=== PATIENT | male | born 1955 | race African-American/Black ===

== ENCOUNTER 2017-03-31 13:55 | Inpatient (IN) | payer OTHER ==
[2017-03-31 15:52] VITALS: BMI 28.0
--- NOTE | 2017-03-31 17:14 | HP ---
Admission ROS [facility] Chief Complaint: I WANT TO GO TO REHAB Allergies/Adverse Reactions: Allergies Allergy/AdvReac Type Severity Reaction Status Date / Time shellfish derived Allergy Severe Vomiting Verified 03/31/17 17:11 No Known Drug Allergies Allergy Verified 03/31/17 17:11 NKDA Allergy Uncoded 03/31/17 17:11 History of Present Illness: 61 YEARS OLD MALE WITH LONG HISTORY OF ALCOHOL COCAINE NICOTINE DEPENDENCE HAS HISTORY OF HYPERTENSION, CURRENT CLONIDINE 0.1 MG TID PRN, NEGATIVE PPD AT [facility], ASTHMA HAS ANXIETY IS ADMITTED TO REHAB Exam Limitations: No Limitations - Ebola screening Have you traveled outside of the country in the last 21 days: No Have you had contact with anyone from an Ebola affected area: No Have you been sick,other than usual withdrawal symptoms: No Do you have a fever: No - Review of Systems Constitutional: No Symptoms Reported EENT: reports: Blurred Vision (WEARS EYE GLASSES) Respiratory: reports: No Symptoms reported Cardiac: reports: No Symptoms Reported GI: reports: No Symptoms Reported : reports: No Symptoms Reported Musculoskeletal: reports: Back Pain Integumentary: reports: No Symptoms Reported Neuro: reports: No Symptoms reported Endocrine: reports: No Symptoms Reported Hematology: reports: No Symptoms Reported Psychiatric: reports: Judgement Intact, Orientated x3, Anxious Other Systems: Reviewed and Negative Patient History - Patient Medical History Hx Anemia: No Hx Asthma: Yes Hx Chronic Obstructive Pulmonary Disease (COPD): No Hx Cancer: No Hx Cardiac Disorders: No Hx Congestive Heart Failure: No Hx Hypertension: Yes Hx Hypercholesterolemia: No Hx Pacemaker: No HX Cerebrovascular Accident: No Hx Seizures: No Hx Dementia: No Hx Diabetes: No Hx Gastrointestinal Disorders: No Hx Liver Disease: No Hx Genitourinary Disorders: No Hx Sexually Transmitted Disorders: No Hx Renal Disease (ESRD): No Hx Thyroid Disease: No Hx Human Immunodeficiency Virus (HIV): No (NEGATIVE HX) Hx Hepatitis C: No Hx Depression: No Hx Suicide Attempt: No Hx Bipolar Disorder: Yes Hx Schizophrenia: No (Paranoid Type) - Patient Surgical History Past Surgical History: Yes Hx Neurologic Surgery: No Hx Cataract Extraction: No Hx Cardiac Surgery: No Hx Lung Surgery: Yes (chest tube 1982 for lung collapse, left) Hx Breast Surgery: No Hx Breast Biopsy: No Hx Abdominal Surgery: No Hx Appendectomy: No Hx Cholecystectomy: No Hx Genitourinary Surgery: No Hx Orthopedic Surgery: Yes (BACK SX TWICE IN 2004) Hx Hysterectomy: No Anesthesia Reaction: No - PPD History Previous Implant?: Yes Documented Results: Negative w/proof Implanted On Prior R Admission?: Yes Date: 06/21/16 Results: 0 mm PPD to be Administered?: No - Smoking Cessation Smoking history: Current every day smoker Have you smoked in the past 12 months: Yes Aproximately how many cigarettes per day: 10 Cigars Per Day: 0 Hx Chewing Tobacco Use: No Initiated information on smoking cessation: Yes 'Breaking Loose' booklet given: 03/31/17 - Substance & Tx. History Hx Alcohol Use: Yes Hx Substance Use: Yes Substance Use Type: Alcohol, Cocaine Hx Substance Use Treatment: Yes (03/2017 [facility]) - Substances Abused Alcohol Route: Oral Frequency: Daily Amount used: 3 PINTS VOLKA Age of first use: 17 Date of Last Use: 03/25/17 Family Disease History - Family Disease History Family Disease History: Diabetes: Grandparent, Mother (), Sister, Heart Disease: Mother, Other: Mother Admission Physical Exam [facility] - Vital Signs Vital Signs: Vital Signs - 24 hr 03/31/17 15:50 Temperature 96.9 F L Pulse Rate 75 Respiratory 20 Rate Blood Pressure 165/106 - Physical General Appearance: Yes: No Apparent Distress, Nourished, Appropriately Dressed HEENTM: Yes: Hearing grossly Normal, Normal ENT Inspection, Normocephalic, Normal Voice Respiratory: Yes: Chest Non-Tender, Lungs Clear, Normal Breath Sounds, No Respiratory Distress, No Accessory Muscle Use Neck: Yes: Supple, Trachea in good position Breast: Yes: Breasts Symetrical Cardiology: Yes: Regular Rhythm, Regular Rate, S1, S2 Abdominal: Yes: Normal Bowel Sounds, Non Tender, Soft Genitourinary: Yes: Within Normal Limits Back: Yes: Normal Inspection Musculoskeletal: Yes: full range of Motion, Gait Steady, Back pain Extremities: Yes: Normal Inspection, Normal Range of Motion, Non-Tender Neurological: Yes: Fully Oriented, Alert, Motor Strength 5/5, Normal Response Integumentary: Yes: Warm Lymphatic: Yes: Within Normal Limits - Diagnostic (1) Asthma Current Visit: Yes Status: Chronic (2) Bipolar I disorder Current Visit: Yes Status: Suspected (3) Essential hypertension Current Visit: Yes Status: Chronic (4) Low back pain Current Visit: Yes Status: Chronic Qualifiers: Chronicity: chronic Back pain laterality: bilateral Sciatica presence: without sciatica Qualified Code(s): M54.5 - Low back pain; G89.29 - Other chronic pain (5) Nicotine dependence Current Visit: Yes Status: Acute Qualifiers: Nicotine product type: cigarettes Substance use status: in withdrawal Qualified Code(s): F17.213 - Nicotine dependence, cigarettes, with withdrawal Cleared for Admission [facility] - Detox or Rehab [facility] Level of Care: Observation Bed Detox Regimen/Protocol: Not Applicable Claeared for Rehab Admission: Yes [facility] Breath Alcohol Content Breath Alcohol Content: 0 Urine Drug Screen - Results Drug Screen Negative: No Urine Drug Screen Results: BZO-Benzodiazepines Inpatient Rehab Admission - Initial Determination Are CD services needed?: Yes Free of communicable disease: Yes Not in need of hospitalization: Yes - Rehab Admission Criteria Previous failed treatment: Yes Poor recovery environment: Yes Comorbidities: Yes Lacks judgement: No Patient is meeting Inpatient Rehab admission criteria:: Yes
[2017-03-31] MEDS ORDERED: MAGNESIUM CITRATE 300 ML BOTTLE PO PRN (17:22)
[2017-03-31] MEDS ORDERED: ACETAMINOPHEN 325 MG TABLET (FP) PO PRN (17:22)
[2017-03-31] MEDS ORDERED: MAG HYDROX/AL HYDROX/SIMETH 30 ML UNIT-DOSE CUP PO PRN (17:22)
[2017-03-31] MEDS ORDERED: MENTHOL/PHENOL 1 EACH UD MM PRN (17:22)
[2017-03-31] MEDS ORDERED: guaiFENesin/D-METHORPHAN HB 10 ML UNIT-DOSE CUPS PO PRN (17:22)
[2017-03-31] MEDS ORDERED: NICOTINE 14 MG/24 HOURS TOPICAL PATCH TD PRN (17:22)
[2017-03-31] MEDS ORDERED: MAGNESIUM HYDROX 2400MG/30ML ORAL SUSPENSION 30 ML CUP PO PRN (17:22)
[2017-03-31] MEDS ORDERED: NICOTINE POLACRILEX 2 MG GUM BC PRN (17:22)
[2017-03-31] MEDS ORDERED: diphenhydrAMINE HCL 50 MG CAPSULE PO PRN (17:22)
[2017-03-31] MEDS ORDERED: LOPERAMIDE HCL 2 MG CAPSULE PO PRN (17:22)
[2017-03-31] MEDS ORDERED: P-EPHED 60MG/TRIPROLIDI 2.5MG TABLET PO PRN (17:22)
[2017-03-31] MEDS ORDERED: IBUPROFEN 400 MG TABLET (FP) PO PRN (17:22)
[2017-03-31] MEDS ORDERED: ALBUTEROL SO4 18 GM HFA INHALER IH PRN (17:23)
[2017-03-31] MEDS: THIAMINE HCL 100 MG TABLET (FP) PO SCH (22:09)
[2017-03-31] MEDS: CYCLOBENZAPRINE HCL 10 MG TABLET (FP) PO SCH (22:09)
[2017-03-31] MEDS: hydrOXYzine PAMOATE 50 MG CAPSULE (FP) PO PRN (22:10)
[2017-03-31] MEDS: LIDOCAINE PATCH REMOVAL MC SCH (22:11)
[2017-03-31 23:35] LABS: URINE APPEARANCE SLCLOUDY; URINE BILIRUBIN NEGATIVE (NEGATIVE); URINE BLOOD NEGATIVE (NEGATIVE); URINE COLOR YELLOW; URINE GLUCOSE (UA) NEGATIVE (NEGATIVE); URINE KETONE NEGATIVE (NEGATIVE); URINE LEUK ESTERASE NEGATIVE (NEGATIVE); URINE NITRITE NEGATIVE (NEGATIVE); URINE PROTEIN NEGATIVE (NEGATIVE); URINE UROBILINOGEN NEGATIVE mg/dL (0.2-1.0)
[2017-04-01] MEDS: CYCLOBENZAPRINE HCL 10 MG TABLET (FP) PO SCH ×3 (06:11→21:35)
[2017-04-01] MEDS: PRENATAL VITAMINS W/ FOLIC ACID TABLET (FP) PO SCH (10:28)
[2017-04-01] MEDS: LIDOCAINE 5% TOPICAL PATCH TP SCH (10:28)
[2017-04-01 14:07] LABS: MCH 29.7 pg (25.7-33.7); MCHC 33.4 g/dl (32.0-35.9); MEAN PLT VOLUME 8.4 fl (7.5-11.1); PLATELET COUNT 227 K/MM3 (134-434); RDW 15.6 % (11.9-15.9); WHITE BLOOD COUNT 3.6 K/mm3 (4.0-10.0)
[2017-04-01 14:35] LABS: ALK PHOS 47 U/L (45-117); ANION GAP 13 (8-16); BILIRUBIN,TOTAL 0.4 mg/dL (0.2-1.0); CALCIUM 9.2 mg/dL (8.5-10.1); CO2 25 mmol/L (21-32); CREATININE 1.4 mg/dL (0.7-1.3); GLUCOSE,RANDOM 201 mg/dL (74-106); SGOT/AST 22 U/L (15-37); SGPT/ALT 29 U/L (12-78); TOT PROT 7.5 g/dl (6.4-8.2)
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
[2017-04-01] MEDS: THIAMINE HCL 100 MG TABLET (FP) PO SCH (21:35)
[2017-04-01] MEDS: LIDOCAINE PATCH REMOVAL MC SCH (21:35)
[2017-04-01] MEDS: hydrOXYzine PAMOATE 50 MG CAPSULE (FP) PO PRN (21:37)
--- NOTE | 2017-04-01 22:28 | EKG ---
Test Reason : Blood Pressure : / mmHG Vent. Rate : 072 BPM Atrial Rate : 072 BPM P-R Int : 182 ms QRS Dur : 084 ms QT Int : 404 ms P-R-T Axes : 063 047 017 degrees QTc Int : 442 ms NORMAL SINUS RHYTHM NONSPECIFIC ST AND T WAVE ABNORMALITY ABNORMAL ECG NO PREVIOUS ECGS AVAILABLE NO CLINICAL INFORMATION IS AVAILABLE FOLLOWM UP TRACING IF INDICATED Confirmed by EDIL MASTERSON MD ([id number]) on 04/01/2017 10:28:18 PM Referred By: Celina Jiménez Confirmed By:EDIL MASTERSON MD
[2017-04-02] MEDS: CYCLOBENZAPRINE HCL 10 MG TABLET (FP) PO SCH ×3 (06:09→21:47)
[2017-04-02] MEDS: PRENATAL VITAMINS W/ FOLIC ACID TABLET (FP) PO SCH (10:28)
[2017-04-02] MEDS: LIDOCAINE 5% TOPICAL PATCH TP SCH (10:29)
--- NOTE | 2017-04-02 10:55 | PN ---
[facility] Progress Note Note: patient was seen this am , states he is anxious and unable to sleep, ready to take medications, discussed indications and properties of Lexapro 10 mg po am and Remeron 30 mg po hs, patient agreed to start, will continue to monitor progress
[2017-04-02] MEDS: ESCITALOPRAM OXALATE 10 MG TABLET (FP) PO SCH (11:01)
[2017-04-02] MEDS: THIAMINE HCL 100 MG TABLET (FP) PO SCH (21:47)
[2017-04-02] MEDS: MIRTAZAPINE 30 MG TABLET (FP) PO SCH (21:47)
[2017-04-02] MEDS: LIDOCAINE PATCH REMOVAL MC SCH (21:47)
[2017-04-02] MEDS: hydrOXYzine PAMOATE 50 MG CAPSULE (FP) PO PRN (21:48)
[2017-04-03] MEDS: CYCLOBENZAPRINE HCL 10 MG TABLET (FP) PO SCH ×3 (06:21→21:46)
[2017-04-03] MEDS: ESCITALOPRAM OXALATE 10 MG TABLET (FP) PO SCH (10:41)
[2017-04-03] MEDS: PRENATAL VITAMINS W/ FOLIC ACID TABLET (FP) PO SCH (10:41)
[2017-04-03] MEDS: LIDOCAINE 5% TOPICAL PATCH TP SCH (10:42)
[2017-04-03] MEDS: THIAMINE HCL 100 MG TABLET (FP) PO SCH (21:46)
[2017-04-03] MEDS: MIRTAZAPINE 30 MG TABLET (FP) PO SCH (21:46)
[2017-04-03] MEDS: LIDOCAINE PATCH REMOVAL MC SCH (21:47)
[2017-04-03] MEDS: hydrOXYzine PAMOATE 50 MG CAPSULE (FP) PO PRN (21:48)
[2017-04-04] MEDS: CYCLOBENZAPRINE HCL 10 MG TABLET (FP) PO SCH ×3 (06:33→21:41)
[2017-04-04] MEDS: PRENATAL VITAMINS W/ FOLIC ACID TABLET (FP) PO SCH (10:31)
[2017-04-04] MEDS: LIDOCAINE 5% TOPICAL PATCH TP SCH (10:31)
[2017-04-04] MEDS: ESCITALOPRAM OXALATE 10 MG TABLET (FP) PO SCH (10:31)
[2017-04-04] MEDS: THIAMINE HCL 100 MG TABLET (FP) PO SCH (21:42)
[2017-04-04] MEDS: MIRTAZAPINE 30 MG TABLET (FP) PO SCH (21:42)
[2017-04-04] MEDS: hydrOXYzine PAMOATE 50 MG CAPSULE (FP) PO PRN (21:43)
[2017-04-04] MEDS: LIDOCAINE PATCH REMOVAL MC SCH (21:43)
[2017-04-05] MEDS: CYCLOBENZAPRINE HCL 10 MG TABLET (FP) PO SCH ×3 (06:13→21:38)
[2017-04-05] MEDS: ESCITALOPRAM OXALATE 10 MG TABLET (FP) PO SCH (10:45)
[2017-04-05] MEDS: PRENATAL VITAMINS W/ FOLIC ACID TABLET (FP) PO SCH (10:45)
[2017-04-05] MEDS: LIDOCAINE 5% TOPICAL PATCH TP SCH (10:45)
[2017-04-05] MEDS: MIRTAZAPINE 30 MG TABLET (FP) PO SCH (21:38)
[2017-04-05] MEDS: hydrOXYzine PAMOATE 50 MG CAPSULE (FP) PO PRN (21:38)
[2017-04-05] MEDS: LIDOCAINE PATCH REMOVAL MC SCH (21:39)
[2017-04-05] MEDS: THIAMINE HCL 100 MG TABLET (FP) PO SCH (21:39)
[2017-04-06] MEDS: CYCLOBENZAPRINE HCL 10 MG TABLET (FP) PO SCH ×3 (06:00→21:40)
[2017-04-06] MEDS: PRENATAL VITAMINS W/ FOLIC ACID TABLET (FP) PO SCH (10:14)
[2017-04-06] MEDS: LIDOCAINE 5% TOPICAL PATCH TP SCH (10:14)
[2017-04-06] MEDS: ESCITALOPRAM OXALATE 10 MG TABLET (FP) PO SCH (10:14)
[2017-04-06] MEDS: MIRTAZAPINE 30 MG TABLET (FP) PO SCH (21:40)
[2017-04-06] MEDS: THIAMINE HCL 100 MG TABLET (FP) PO SCH (21:40)
[2017-04-06] MEDS: hydrOXYzine PAMOATE 50 MG CAPSULE (FP) PO PRN (21:40)
[2017-04-06] MEDS: LIDOCAINE PATCH REMOVAL MC SCH (21:41)
[2017-04-07] MEDS: CYCLOBENZAPRINE HCL 10 MG TABLET (FP) PO SCH ×2 (06:00→14:15)
[2017-04-07 06:59] VITALS: TEMP 98.2
[2017-04-07] MEDS: ESCITALOPRAM OXALATE 10 MG TABLET (FP) PO SCH (10:42)
[2017-04-07] MEDS: LIDOCAINE 5% TOPICAL PATCH TP SCH (10:42)
[2017-04-07] MEDS: PRENATAL VITAMINS W/ FOLIC ACID TABLET (FP) PO SCH (10:42)
--- NOTE | 2017-04-07 14:29 | PN ---
Psychiatric Progress Note Vital Signs: Vital Signs Period Temp Pulse Resp BP Sys/Ghosh Pulse Ox Last 24 Hr 98.2 F 76 16-18 152/86 Date of Session: 04/07/17 Chief Complaint:: discharge visit HPI: The patient has addressed alcohol, cocaine , nicotine dependence comorbid Bipolar I disorder. ROS: HTN, Low back pain/herniated discs, sciatica, Asthma, GERD medically managed. Current Medications: Active Medications Generic Name Dose Route Start Last Admin Trade Name Freq PRN Reason Stop Dose Admin Acetaminophen 650 mg 03/31/17 17:22 Tylenol - PO Q4H PRN PAIN Al Hydroxide/Mg Hydroxide 30 ml 03/31/17 17:22 Mylanta Oral Suspension - PO Q6H PRN DYSPEPSIA Albuterol Sulfate 2 puff 03/31/17 17:23 Ventolin Hfa Inhaler - IH Q4H PRN SHORT OF BREATH/WHEEZING Cyclobenzaprine HCl 10 mg 03/31/17 22:00 04/07/17 14:15 Flexeril - PO 10 mg TID KWAME Administration Diphenhydramine HCl 50 mg 03/31/17 17:22 Benadryl - PO HSMR1 PRN INSOMNIA Escitalopram Oxalate 10 mg 04/02/17 10:45 04/07/17 10:42 Lexapro - PO 10 mg DAILY KWAME Administration Eucalyptus/Menthol/Phenol/Sorbitol 1 each 03/31/17 17:22 Cepastat Lozenge - MM Q4H PRN SORE THROAT Guaifenesin 10 ml 03/31/17 17:22 Robitussin Dm - PO Q6H PRN COUGH Hydroxyzine Pamoate 50 mg 03/31/17 17:22 04/06/17 21:40 Vistaril - PO 50 mg Q4H PRN Administration AGITATION Ibuprofen 400 mg 03/31/17 17:22 04/02/17 10:28 Motrin - PO 400 mg Q6H PRN Administration SEVERE PAIN Lidocaine 1 patch 04/01/17 10:00 04/07/17 10:42 Lidoderm Patch - TP Not Given DAILY KWAME Loperamide HCl 4 mg 03/31/17 17:22 Imodium - PO Q6H PRN DIARRHEA Magnesium Citrate 300 ml 03/31/17 17:22 Citroma - PO Q48H PRN CONSTIPATION Magnesium Hydroxide 30 ml 03/31/17 17:22 Milk Of Magnesia - PO DAILY PRN CONSTIPATION Mirtazapine 30 mg 04/02/17 22:00 04/06/17 21:40 Remeron - PO 30 mg HS KWAME Administration Miscellaneous 1 each 03/31/17 22:00 04/06/17 21:41 Lidoderm Patch Removal MC 1 each DAILY@2200 KWAME Administration Nicotine 14 mg 03/31/17 17:22 Nicoderm Patch - TD DAILY PRN WITHDRAWAL(CONT SUBST) Nicotine Polacrilex 2 mg 03/31/17 17:22 Nicorette Gum - BC Q2H PRN NICOTINE REPLACEMENT RX Multivit/Folic Acid/Iron 1 tab 04/01/17 10:00 04/07/17 10:42 Vitamins (Sjr) - PO 1 tab DAILY KWAME Administration Pseudoephedrine/Triprolidine 1 combo 03/31/17 17:22 Actifed - PO TID PRN NASAL CONGESTION Thiamine HCl 100 mg 03/31/17 22:00 04/06/17 21:40 Vitamin B1 - PO 100 mg HS KWAME Administration Current Side Effect: No Lab tests ordered: No Lab tests reviewed: Yes Provider note:: PAtient requested to be discharge today, he completed 7 days treatment and met short term goals, will continue address his isues at [facility] out reach services, he understands the negative consequenses of his addiction and motivated to continue maitain abstinence. Medications Lexapro and Remeron well tolarated, scripts provided, patient is stable for discharge today. Total face to face time:: 15 Mental Status Exam - Mental Status Exam Alert and Oriented to: Time, Place, Person Cognitive Function: Good Patient Appearance: Well Groomed Mood: Hopeful Affect: Appropriate, Mood Congruent Patient Behavior: Appropriate, Cooperative Speech Pattern: Clear, Appropriate Voice Loudness: Normal Thought Process: Goal Oriented Thought Disorder: Not Present Hallucinations: Denies Suicidal Ideation: Denies Homicidal Ideation: Denies Insight/Judgement: Fair Sleep: Fair Appetite: Fair Muscle strength/Tone: Normal Gait/Station: Normal Psychiatric Treatment Plan - Problem List (1) Nicotine dependence Current Visit: Yes Qualifiers: Nicotine product type: cigarettes Substance use status: in withdrawal Qualified Code(s): F17.213 - Nicotine dependence, cigarettes, with withdrawal (2) Bipolar I disorder Current Visit: Yes (3) Alcohol dependence Current Visit: No (4) Cocaine dependence Current Visit: No
[2017-04-07] MEDS ORDERED: amLODIPine BESYLATE 10 MG TABLET (FP) PO SCH (14:45)
[2017-04-07 15:51] VITALS: BP 148/98; PULSE 74
== END 2017-04-07 13:20 | disposition home or self-care (01) | DRG 772 ==
LOC: YASAS 13:55 → Y5N 20:19
PROVIDERS: ADMIT Psychiatry & Neurology Psychiatry; ATTEND Psychiatry & Neurology Psychiatry
PROC: HZ42ZZZ Group Counseling for Substance Abuse Treatment, Cognitive-Behavioral (ICD-10-PCS; principal; 2017-03-31)
DX: F10.20 Alcohol dependence, uncomplicated (principal); F14.20 Cocaine dependence, uncomplicated; F17.210 Nicotine dependence, cigarettes, uncomplicated; F31.89 Other bipolar disorder; I10 Essential (primary) hypertension; M54.40 Lumbago with sciatica, unspecified side; G89.29 Other chronic pain; J45.909 Unspecified asthma, uncomplicated; K21.9 Gastro-esophageal reflux disease without esophagitis; Z59.0 Homelessness
CPT/HCPCS: 36415; 80053; 81003; 85027; 86593; 86780; 93005; 93010

== ENCOUNTER 2021-05-16 14:09 | Inpatient (IN) | payer OTHER ==
[2021-05-16 16:59] VITALS: BMI 29.3
[2021-05-16] MEDS ORDERED: NICOTINE 10 MG CARTRIDGE (INHALER) IH PRN (17:12)
[2021-05-16] MEDS ORDERED: P-EPHED 60MG/TRIPROLIDI 2.5MG TABLET PO PRN (17:12)
[2021-05-16] MEDS ORDERED: ACETAMINOPHEN 325 MG TABLET (FP) PO PRN (17:12)
[2021-05-16] MEDS ORDERED: MAG HYDROX/AL HYDROX/SIMETH 30 ML UNIT-DOSE CUP PO PRN (17:12)
[2021-05-16] MEDS ORDERED: MAGNESIUM CITRATE 300 ML BOTTLE PO PRN (17:12)
[2021-05-16] MEDS ORDERED: LOPERAMIDE HCL 2 MG CAPSULE PO PRN (17:12)
[2021-05-16] MEDS ORDERED: MAGNESIUM HYDROX 2400MG/30ML ORAL SUSPENSION 30 ML CUP PO PRN (17:12)
[2021-05-16] MEDS ORDERED: guaiFENesin 200 MG/10 ML 10 ML UNIT-DOSE CUPS PO PRN (17:12)
[2021-05-16] MEDS: THIAMINE HCL 100 MG TABLET (FP) PO SCH (21:32)
[2021-05-16] MEDS: MELATONIN 5 MG TABLETS PO SCH (21:32)
[2021-05-16] MEDS: hydrOXYzine PAMOATE 25 MG CAPSULE (FP) PO PRN (21:32)
[2021-05-16 22:00] LABS: PH,URINE 5.5 (5.0-8.0); URINE APPEARANCE CLEAR; URINE BILIRUBIN NEGATIVE (NEGATIVE); URINE COLOR YELLOW; URINE GLUCOSE (UA) NEGATIVE (NEGATIVE); URINE KETONE TRACE (NEGATIVE); URINE LEUK ESTERASE NEGATIVE (NEGATIVE); URINE NITRITE NEGATIVE (NEGATIVE); URINE PROTEIN NEGATIVE (NEGATIVE); URINE UROBILINOGEN 0.2 mg/dL (0.2-1.0)
[2021-05-17] MEDS: hydrOXYzine PAMOATE 25 MG CAPSULE (FP) PO PRN ×2 (09:59→21:02)
[2021-05-17] MEDS: NICOTINE 7 MG/24 HOURS TOPICAL PATCH TD SCH (09:59)
[2021-05-17] MEDS: PRENATAL VITAMINS W/ FOLIC ACID TABLET (FP) PO SCH (09:59)
[2021-05-17 10:37] LABS: HEMOGLOBIN 15.3 GM/dL (11.7-16.9); MCH 30.5 pg (25.7-33.7); MCHC 34.8 g/dl (32.0-35.9); MEAN CELL VOLUME 87.6 fl (80-96); PLATELET COUNT 239 10^3/uL (134-434); RBC 5.02 M/mm3 (4.00-5.60); WHITE BLOOD COUNT 3.6 K/mm3 (4.0-10.0)
[2021-05-17 10:43] LABS: ALBUMIN 3.8 g/dl (3.4-5.0); BLOOD UREA NITROGEN 13.5 mg/dL (7-18); CALCIUM 9.1 mg/dL (8.5-10.1)
[2021-05-17 10:47] LABS: BILIRUBIN,TOTAL 0.5 mg/dL (0.2-1); CREATININE 1.2 mg/dL (0.55-1.3); TOT PROT 7.6 g/dl (6.4-8.2)
[2021-05-17] MEDS ORDERED: TAMSULOSIN HCL 0.4 MG CAP PO ONE ×2 (10:59→16:00)
[2021-05-17 12:45] LABS: SYPHILIS W/ RPR CONF REACTIVE (NONREACTIVE)
[2021-05-17] MEDS: IBUPROFEN 400 MG TABLET (FP) PO PRN (21:02)
[2021-05-17] MEDS: THIAMINE HCL 100 MG TABLET (FP) PO SCH (21:02)
[2021-05-17] MEDS: MELATONIN 5 MG TABLETS PO SCH (21:02)
[2021-05-18] MEDS ORDERED: TAMSULOSIN HCL 0.4 MG CAP PO SCH (08:30)
[2021-05-18] MEDS: TAMSULOSIN HCL 0.4 MG CAP PO SCH (10:09)
[2021-05-18] MEDS: hydrOXYzine PAMOATE 25 MG CAPSULE (FP) PO PRN ×2 (10:09→21:42)
[2021-05-18] MEDS: PRENATAL VITAMINS W/ FOLIC ACID TABLET (FP) PO SCH (10:09)
[2021-05-18] MEDS: NICOTINE 7 MG/24 HOURS TOPICAL PATCH TD SCH (10:10)
[2021-05-18] MEDS: THIAMINE HCL 100 MG TABLET (FP) PO SCH (21:42)
[2021-05-18] MEDS: MELATONIN 5 MG TABLETS PO SCH (21:42)
[2021-05-19] MEDS: PRENATAL VITAMINS W/ FOLIC ACID TABLET (FP) PO SCH (09:56)
[2021-05-19] MEDS: NICOTINE 7 MG/24 HOURS TOPICAL PATCH TD SCH (09:56)
[2021-05-19] MEDS: hydrOXYzine PAMOATE 25 MG CAPSULE (FP) PO PRN ×2 (09:56→21:19)
[2021-05-19] MEDS: TAMSULOSIN HCL 0.4 MG CAP PO SCH (09:56)
[2021-05-19] MEDS: THIAMINE HCL 100 MG TABLET (FP) PO SCH (21:18)
[2021-05-19] MEDS: MELATONIN 5 MG TABLETS PO SCH (21:19)
[2021-05-20] MEDS: TAMSULOSIN HCL 0.4 MG CAP PO SCH (10:02)
[2021-05-20] MEDS: hydrOXYzine PAMOATE 25 MG CAPSULE (FP) PO PRN ×2 (10:02→21:33)
[2021-05-20] MEDS: IBUPROFEN 400 MG TABLET (FP) PO PRN (10:02)
[2021-05-20] MEDS: PRENATAL VITAMINS W/ FOLIC ACID TABLET (FP) PO SCH (10:02)
[2021-05-20] MEDS: NICOTINE 7 MG/24 HOURS TOPICAL PATCH TD SCH (10:03)
[2021-05-20] MEDS: MELATONIN 5 MG TABLETS PO SCH (21:33)
[2021-05-20] MEDS: THIAMINE HCL 100 MG TABLET (FP) PO SCH (21:33)
[2021-05-21 08:27] VITALS: BP 163/95; PULSE 63; TEMP 97.7
[2021-05-21] MEDS: TAMSULOSIN HCL 0.4 MG CAP PO SCH (10:03)
[2021-05-21] MEDS: hydrOXYzine PAMOATE 25 MG CAPSULE (FP) PO PRN (10:03)
[2021-05-21] MEDS: NICOTINE 7 MG/24 HOURS TOPICAL PATCH TD SCH (10:03)
[2021-05-21] MEDS: PRENATAL VITAMINS W/ FOLIC ACID TABLET (FP) PO SCH (10:03)
== END 2021-05-21 17:25 | disposition left against medical advice (07) | DRG 770 ==
LOC: YASAS 14:09 → Y3W 18:46
PROVIDERS: ADMIT Allergy & Immunology; ATTEND Allergy & Immunology
PROC: HZ42ZZZ Group Counseling for Substance Abuse Treatment, Cognitive-Behavioral (ICD-10-PCS; principal; 2021-05-16)
DX: F10.20 Alcohol dependence, uncomplicated (principal); F14.20 Cocaine dependence, uncomplicated; F17.210 Nicotine dependence, cigarettes, uncomplicated; N40.0 Benign prostatic hyperplasia without lower urinary tract symptoms; Z91.013 Allergy to seafood
CPT/HCPCS: 36415; 80053; 81003; 85027; 86593; 86780; 86803; 87811; C9803; U0003; U0005

== ENCOUNTER 2021-10-12 12:56 | Inpatient (IN) | payer OTHER ==
[2021-10-12] MEDS ORDERED: ACETAMINOPHEN 325 MG TABLET (FP) PO PRN ×2 (13:53)
[2021-10-12] MEDS ORDERED: chlordiazePOXIDE HCL 25 MG CAPSULE PO PRN (13:53)
[2021-10-12] MEDS ORDERED: LOPERAMIDE HCL 2 MG CAPSULE PO PRN (13:53)
[2021-10-12] MEDS ORDERED: NICOTINE 10 MG CARTRIDGE (INHALER) IH PRN (13:53)
[2021-10-12] MEDS ORDERED: BISMUTH SUBSALICYLATE 262 MG/15 ML BTL PO PRN (13:53)
[2021-10-12] MEDS ORDERED: MENTHOL/PHENOL 1 EACH UD MM PRN (13:53)
[2021-10-12] MEDS ORDERED: ONDANSETRON *ODT* 4 MG TABLET SL PRN (13:53)
[2021-10-12] MEDS ORDERED: MAGNESIUM CITRATE 300 ML BOTTLE PO PRN (13:53)
[2021-10-12] MEDS ORDERED: DICYCLOMINE HCL 10 MG CAPSULE PO PRN (13:53)
[2021-10-12] MEDS ORDERED: MAG HYDROX/AL HYDROX/SIMETH 30 ML UNIT-DOSE CUP PO PRN (13:53)
[2021-10-12] MEDS ORDERED: MAGNESIUM HYDROX 2400MG/30ML ORAL SUSPENSION 30 ML CUP PO PRN (13:53)
[2021-10-12] MEDS ORDERED: hydrOXYzine PAMOATE 25 MG CAPSULE (FP) PO PRN (14:00)
[2021-10-12] MEDS ORDERED: NICOTINE 14 MG/24 HOURS TOPICAL PATCH TD SCH (14:00)
[2021-10-12 15:51] VITALS: BMI 28.3
[2021-10-12] MEDS: THIAMINE HCL 100 MG TABLET (FP) PO SCH (22:08)
[2021-10-12] MEDS: MELATONIN 5 MG TABLETS PO SCH (22:08)
[2021-10-12] MEDS: chlordiazePOXIDE HCL 25 MG CAPSULE PO SCH ×2 (22:08→22:50)
[2021-10-12] MEDS: PRENATAL VITAMINS W/ FOLIC ACID TABLET (FP) PO SCH (22:09)
[2021-10-13] MEDS: chlordiazePOXIDE HCL 25 MG CAPSULE PO SCH ×5 (00:07→22:23)
[2021-10-13] MEDS: hydrOXYzine PAMOATE 25 MG CAPSULE (FP) PO PRN ×2 (05:57→10:30)
[2021-10-13] MEDS: TAMSULOSIN HCL 0.4 MG CAP PO SCH (10:30)
[2021-10-13] MEDS: PRENATAL VITAMINS W/ FOLIC ACID TABLET (FP) PO SCH (10:31)
[2021-10-13] MEDS: IBUPROFEN 400 MG TABLET (FP) PO PRN (10:32)
[2021-10-13] MEDS: TOLNAFTATE 1% CREAM 15 GM TUBE TP SCH ×2 (10:33→22:23)
[2021-10-13] MEDS: MELATONIN 5 MG TABLETS PO SCH (22:23)
[2021-10-13] MEDS: THIAMINE HCL 100 MG TABLET (FP) PO SCH (22:23)
[2021-10-14] MEDS: chlordiazePOXIDE HCL 25 MG CAPSULE PO SCH ×4 (05:59→22:44)
[2021-10-14] MEDS: PRENATAL VITAMINS W/ FOLIC ACID TABLET (FP) PO SCH (10:25)
[2021-10-14] MEDS: METHOCARBAMOL 500 MG TABLET PO PRN ×2 (10:26→22:43)
[2021-10-14] MEDS: hydrOXYzine PAMOATE 25 MG CAPSULE (FP) PO PRN (10:26)
[2021-10-14] MEDS: TOLNAFTATE 1% CREAM 15 GM TUBE TP SCH ×2 (10:26→22:45)
[2021-10-14] MEDS: TAMSULOSIN HCL 0.4 MG CAP PO SCH (10:26)
[2021-10-14] MEDS: IBUPROFEN 400 MG TABLET (FP) PO PRN ×2 (10:28→22:42)
[2021-10-14] MEDS: MELATONIN 5 MG TABLETS PO SCH (22:43)
[2021-10-14] MEDS: THIAMINE HCL 100 MG TABLET (FP) PO SCH (22:44)
[2021-10-15] MEDS ORDERED: chlordiazePOXIDE HCL 10 MG CAPSULE PO PRN
[2021-10-15 00:06] LABS: SARS-CoV-2 NAA Not Detected (Not Detected)
[2021-10-15] MEDS: chlordiazePOXIDE HCL 10 MG CAPSULE PO SCH ×4 (05:52→22:05)
[2021-10-15] MEDS: TOLNAFTATE 1% CREAM 15 GM TUBE TP SCH ×2 (10:09→22:07)
[2021-10-15] MEDS: PRENATAL VITAMINS W/ FOLIC ACID TABLET (FP) PO SCH (10:09)
[2021-10-15] MEDS: TAMSULOSIN HCL 0.4 MG CAP PO SCH (10:09)
[2021-10-15] MEDS: METHOCARBAMOL 500 MG TABLET PO PRN (10:12)
[2021-10-15] MEDS: IBUPROFEN 400 MG TABLET (FP) PO PRN (10:12)
[2021-10-15 14:41] LABS: HEMOGLOBIN 13.4 GM/dL (11.7-16.9); MCH 29.8 pg (25.7-33.7); MCHC 34.4 g/dl (32.0-35.9); MEAN CELL VOLUME 86.6 fl (80-96); MEAN PLT VOLUME 7.9 fl (7.5-11.1); PLATELET COUNT 212 10^3/uL (134-434); RBC 4.51 M/mm3 (4.00-5.60); RDW 15.6 % (11.9-15.9); WHITE BLOOD COUNT 3.2 K/mm3 (4.0-10.0)
[2021-10-15 15:03] LABS: ALBUMIN 3.4 g/dl (3.4-5.0); BLOOD UREA NITROGEN 12.2 mg/dL (7-18)
[2021-10-15 15:06] LABS: CREATININE 1.2 mg/dL (0.55-1.3)
[2021-10-15 15:07] LABS: BILIRUBIN,TOTAL 0.3 mg/dL (0.2-1); TOT PROT 6.3 g/dl (6.4-8.2)
[2021-10-15] MEDS: LIDOCAINE 5% TOPICAL PATCH TP SCH (15:10)
[2021-10-15] MEDS: MIRTAZAPINE 15 MG TABLET (FP) PO SCH (22:04)
[2021-10-15] MEDS: THIAMINE HCL 100 MG TABLET (FP) PO SCH (22:04)
[2021-10-15] MEDS: LIDOCAINE PATCH REMOVAL MC SCH (22:04)
[2021-10-15] MEDS: MELATONIN 5 MG TABLETS PO SCH (22:07)
[2021-10-16] MEDS: chlordiazePOXIDE HCL 10 MG CAPSULE PO SCH ×2 (06:08→17:41)
[2021-10-16] MEDS: TAMSULOSIN HCL 0.4 MG CAP PO SCH (10:33)
[2021-10-16] MEDS: LIDOCAINE 5% TOPICAL PATCH TP SCH (10:33)
[2021-10-16] MEDS: TOLNAFTATE 1% CREAM 15 GM TUBE TP SCH ×2 (10:33→22:07)
[2021-10-16] MEDS: PRENATAL VITAMINS W/ FOLIC ACID TABLET (FP) PO SCH (10:33)
[2021-10-16] MEDS: IBUPROFEN 400 MG TABLET (FP) PO PRN (10:35)
[2021-10-16] MEDS: METHOCARBAMOL 500 MG TABLET PO PRN ×2 (10:35→22:06)
[2021-10-16] MEDS: amLODIPine BESYLATE 5 MG TABLET (FP) PO SCH (15:33)
[2021-10-16] MEDS: MIRTAZAPINE 15 MG TABLET (FP) PO SCH (22:06)
[2021-10-16] MEDS: THIAMINE HCL 100 MG TABLET (FP) PO SCH (22:06)
[2021-10-16] MEDS: MELATONIN 5 MG TABLETS PO SCH (22:08)
[2021-10-16] MEDS: LIDOCAINE PATCH REMOVAL MC SCH (22:08)
[2021-10-17] MEDS ORDERED: chlordiazePOXIDE HCL 10 MG CAPSULE PO ONE (05:00)
[2021-10-17 09:45] VITALS: BP 155/97; PULSE 72; TEMP 97.3
[2021-10-17] MEDS: TAMSULOSIN HCL 0.4 MG CAP PO SCH (09:48)
[2021-10-17] MEDS: PRENATAL VITAMINS W/ FOLIC ACID TABLET (FP) PO SCH (09:48)
[2021-10-17] MEDS: amLODIPine BESYLATE 5 MG TABLET (FP) PO SCH (09:48)
[2021-10-17] MEDS: LIDOCAINE 5% TOPICAL PATCH TP SCH (09:49)
[2021-10-17] MEDS: TOLNAFTATE 1% CREAM 15 GM TUBE TP SCH (09:51)
[2021-10-18 10:13] LABS: SARS-CoV-2 NAA Not Detected (Not Detected)
== END 2021-10-17 12:25 | disposition other institution (70) | DRG 774 ==
LOC: YASAS 12:56 → Y6N 16:25
PROVIDERS: ADMIT Allergy & Immunology; ATTEND Allergy & Immunology
PROC: HZ2ZZZZ Detoxification Services for Substance Abuse Treatment (ICD-10-PCS; principal; 2021-10-12)
DX: F10.230 Alcohol dependence with withdrawal, uncomplicated (principal); F14.20 Cocaine dependence, uncomplicated; F17.210 Nicotine dependence, cigarettes, uncomplicated; F31.5 Bipolar disorder, current episode depressed, severe, with psychotic features; I10 Essential (primary) hypertension; K21.9 Gastro-esophageal reflux disease without esophagitis; M54.30 Sciatica, unspecified side; B35.3 Tinea pedis; J45.909 Unspecified asthma, uncomplicated; M54.59 Other low back pain; G89.29 Other chronic pain; R73.09 Other abnormal glucose; N40.0 Benign prostatic hyperplasia without lower urinary tract symptoms; Z91.013 Allergy to seafood; Z62.810 Personal history of physical and sexual abuse in childhood; Z86.19 Personal history of other infectious and parasitic diseases; Z91.51 Personal history of suicidal behavior; Z56.0 Unemployment, unspecified
CPT/HCPCS: 36415; 80053; 85027; 86593; 86780; 93005; 93010; C9803-CS; U0003; U0005

== ENCOUNTER 2021-10-17 12:36 | Inpatient (IN) | payer OTHER ==
[2021-10-17] MEDS ORDERED: guaiFENesin 200 MG/10 ML 10 ML UNIT-DOSE CUPS PO PRN (14:00)
[2021-10-17] MEDS ORDERED: MENTHOL/PHENOL 1 EACH UD MM PRN (14:00)
[2021-10-17] MEDS ORDERED: NICOTINE 10 MG CARTRIDGE (INHALER) IH PRN (14:00)
[2021-10-17] MEDS ORDERED: ACETAMINOPHEN 325 MG TABLET (FP) PO PRN (14:00)
[2021-10-17] MEDS ORDERED: LOPERAMIDE HCL 2 MG CAPSULE PO PRN (14:00)
[2021-10-17] MEDS ORDERED: MAGNESIUM HYDROX 2400MG/30ML ORAL SUSPENSION 30 ML CUP PO PRN (14:00)
[2021-10-17] MEDS ORDERED: MAG HYDROX/AL HYDROX/SIMETH 30 ML UNIT-DOSE CUP PO PRN (14:00)
[2021-10-17] MEDS ORDERED: P-EPHED 60MG/TRIPROLIDI 2.5MG TABLET PO PRN (14:00)
[2021-10-17] MEDS ORDERED: MAGNESIUM CITRATE 300 ML BOTTLE PO PRN (14:00)
[2021-10-17] MEDS: THIAMINE HCL 100 MG TABLET (FP) PO SCH (21:26)
[2021-10-17] MEDS: LIDOCAINE PATCH REMOVAL MC SCH (21:26)
[2021-10-17] MEDS: MELATONIN 5 MG TABLETS PO SCH (21:26)
[2021-10-17] MEDS: MIRTAZAPINE 15 MG TABLET (FP) PO SCH (21:26)
[2021-10-17] MEDS: TOLNAFTATE 1% CREAM 15 GM TUBE TP SCH (21:27)
[2021-10-17] MEDS: hydrOXYzine PAMOATE 25 MG CAPSULE (FP) PO PRN (21:28)
[2021-10-18] MEDS: amLODIPine BESYLATE 5 MG TABLET (FP) PO SCH (10:14)
[2021-10-18] MEDS: PRENATAL VITAMINS W/ FOLIC ACID TABLET (FP) PO SCH (10:14)
[2021-10-18] MEDS: NICOTINE 7 MG/24 HOURS TOPICAL PATCH TD SCH (10:14)
[2021-10-18] MEDS: TAMSULOSIN HCL 0.4 MG CAP PO SCH (10:14)
[2021-10-18] MEDS: LIDOCAINE 5% TOPICAL PATCH TP SCH (10:15)
[2021-10-18] MEDS: TOLNAFTATE 1% CREAM 15 GM TUBE TP SCH ×2 (10:15→21:05)
[2021-10-18] MEDS: hydrOXYzine PAMOATE 25 MG CAPSULE (FP) PO PRN ×2 (10:16→21:05)
[2021-10-18] MEDS: IBUPROFEN 400 MG TABLET (FP) PO PRN (10:16)
[2021-10-18] MEDS: MIRTAZAPINE 15 MG TABLET (FP) PO SCH (21:04)
[2021-10-18] MEDS: THIAMINE HCL 100 MG TABLET (FP) PO SCH (21:04)
[2021-10-18] MEDS: MELATONIN 5 MG TABLETS PO SCH (21:04)
[2021-10-18] MEDS: LIDOCAINE PATCH REMOVAL MC SCH (21:04)
[2021-10-19] MEDS: NICOTINE 7 MG/24 HOURS TOPICAL PATCH TD SCH (09:56)
[2021-10-19] MEDS: PRENATAL VITAMINS W/ FOLIC ACID TABLET (FP) PO SCH (09:56)
[2021-10-19] MEDS: TOLNAFTATE 1% CREAM 15 GM TUBE TP SCH ×2 (09:56→21:20)
[2021-10-19] MEDS: TAMSULOSIN HCL 0.4 MG CAP PO SCH (09:56)
[2021-10-19] MEDS: LIDOCAINE 5% TOPICAL PATCH TP SCH (09:56)
[2021-10-19] MEDS: amLODIPine BESYLATE 5 MG TABLET (FP) PO SCH (09:56)
[2021-10-19] MEDS: LIDOCAINE PATCH REMOVAL MC SCH (21:19)
[2021-10-19] MEDS: MIRTAZAPINE 15 MG TABLET (FP) PO SCH (21:19)
[2021-10-19] MEDS: MELATONIN 5 MG TABLETS PO SCH (21:19)
[2021-10-19] MEDS: THIAMINE HCL 100 MG TABLET (FP) PO SCH (21:19)
[2021-10-20] MEDS: TAMSULOSIN HCL 0.4 MG CAP PO SCH (07:30)
[2021-10-20] MEDS: PRENATAL VITAMINS W/ FOLIC ACID TABLET (FP) PO SCH (10:12)
[2021-10-20] MEDS: amLODIPine BESYLATE 5 MG TABLET (FP) PO SCH (10:12)
[2021-10-20] MEDS: NICOTINE 7 MG/24 HOURS TOPICAL PATCH TD SCH (10:13)
[2021-10-20] MEDS: TOLNAFTATE 1% CREAM 15 GM TUBE TP SCH ×2 (10:13→22:55)
[2021-10-20] MEDS: LIDOCAINE 5% TOPICAL PATCH TP SCH (10:13)
[2021-10-20] MEDS: LIDOCAINE PATCH REMOVAL MC SCH (21:19)
[2021-10-20] MEDS: THIAMINE HCL 100 MG TABLET (FP) PO SCH (21:20)
[2021-10-20] MEDS: MELATONIN 5 MG TABLETS PO SCH (21:20)
[2021-10-20] MEDS: MIRTAZAPINE 15 MG TABLET (FP) PO SCH (21:20)
[2021-10-20] MEDS: hydrOXYzine PAMOATE 25 MG CAPSULE (FP) PO PRN (21:21)
[2021-10-21] MEDS: TAMSULOSIN HCL 0.4 MG CAP PO SCH (07:59)
[2021-10-21] MEDS: PRENATAL VITAMINS W/ FOLIC ACID TABLET (FP) PO SCH (10:32)
[2021-10-21] MEDS: LIDOCAINE 5% TOPICAL PATCH TP SCH (10:33)
[2021-10-21] MEDS: NICOTINE 7 MG/24 HOURS TOPICAL PATCH TD SCH (10:33)
[2021-10-21] MEDS: amLODIPine BESYLATE 5 MG TABLET (FP) PO SCH (10:34)
[2021-10-21] MEDS: TOLNAFTATE 1% CREAM 15 GM TUBE TP SCH ×2 (10:34→21:19)
[2021-10-21 16:07] LABS: SARS-CoV-2 NAA Not Detected (Not Detected)
[2021-10-21] MEDS: MIRTAZAPINE 15 MG TABLET (FP) PO SCH (21:18)
[2021-10-21] MEDS: MELATONIN 5 MG TABLETS PO SCH (21:19)
[2021-10-21] MEDS: THIAMINE HCL 100 MG TABLET (FP) PO SCH (21:19)
[2021-10-21] MEDS: hydrOXYzine PAMOATE 25 MG CAPSULE (FP) PO PRN (21:19)
[2021-10-21] MEDS: LIDOCAINE PATCH REMOVAL MC SCH (21:19)
[2021-10-22] MEDS: TAMSULOSIN HCL 0.4 MG CAP PO SCH (07:35)
[2021-10-22] MEDS: NICOTINE 7 MG/24 HOURS TOPICAL PATCH TD SCH (10:12)
[2021-10-22] MEDS: LIDOCAINE 5% TOPICAL PATCH TP SCH (10:12)
[2021-10-22] MEDS: PRENATAL VITAMINS W/ FOLIC ACID TABLET (FP) PO SCH (10:12)
[2021-10-22] MEDS: TOLNAFTATE 1% CREAM 15 GM TUBE TP SCH ×2 (10:12→22:14)
[2021-10-22] MEDS: amLODIPine BESYLATE 5 MG TABLET (FP) PO SCH (10:13)
[2021-10-22] MEDS: hydrOXYzine PAMOATE 25 MG CAPSULE (FP) PO PRN ×2 (10:14→21:29)
[2021-10-22] MEDS: METHOCARBAMOL 500 MG TABLET PO PRN ×2 (11:15→21:29)
[2021-10-22] MEDS: METHYL SALICYLATE/MENTHOL OINT 30 GM TUBE TP SCH ×2 (11:15→21:28)
[2021-10-22] MEDS: THIAMINE HCL 100 MG TABLET (FP) PO SCH (21:29)
[2021-10-22] MEDS: LIDOCAINE PATCH REMOVAL MC SCH (21:29)
[2021-10-22] MEDS: MIRTAZAPINE 15 MG TABLET (FP) PO SCH (21:30)
[2021-10-22] MEDS: MELATONIN 5 MG TABLETS PO SCH (21:30)
[2021-10-23] MEDS: amLODIPine BESYLATE 5 MG TABLET (FP) PO SCH (10:07)
[2021-10-23] MEDS: PRENATAL VITAMINS W/ FOLIC ACID TABLET (FP) PO SCH (10:07)
[2021-10-23] MEDS: NICOTINE 7 MG/24 HOURS TOPICAL PATCH TD SCH (10:07)
[2021-10-23] MEDS: TAMSULOSIN HCL 0.4 MG CAP PO SCH (10:07)
[2021-10-23] MEDS: METHYL SALICYLATE/MENTHOL OINT 30 GM TUBE TP SCH ×2 (10:08→21:16)
[2021-10-23] MEDS: LIDOCAINE 5% TOPICAL PATCH TP SCH (10:08)
[2021-10-23] MEDS: METHOCARBAMOL 500 MG TABLET PO PRN ×2 (10:10→21:16)
[2021-10-23] MEDS: TOLNAFTATE 1% CREAM 15 GM TUBE TP SCH ×2 (10:11→21:17)
[2021-10-23] MEDS: LIDOCAINE PATCH REMOVAL MC SCH (21:14)
[2021-10-23] MEDS: MIRTAZAPINE 15 MG TABLET (FP) PO SCH (21:16)
[2021-10-23] MEDS: THIAMINE HCL 100 MG TABLET (FP) PO SCH (21:16)
[2021-10-23] MEDS: MELATONIN 5 MG TABLETS PO SCH (21:16)
[2021-10-24] MEDS: TAMSULOSIN HCL 0.4 MG CAP PO SCH (07:32)
[2021-10-24] MEDS: NICOTINE 7 MG/24 HOURS TOPICAL PATCH TD SCH (09:52)
[2021-10-24] MEDS: PRENATAL VITAMINS W/ FOLIC ACID TABLET (FP) PO SCH (09:52)
[2021-10-24] MEDS: TOLNAFTATE 1% CREAM 15 GM TUBE TP SCH ×2 (09:53→21:35)
[2021-10-24] MEDS: METHYL SALICYLATE/MENTHOL OINT 30 GM TUBE TP SCH ×2 (09:53→21:35)
[2021-10-24] MEDS: LIDOCAINE 5% TOPICAL PATCH TP SCH (09:53)
[2021-10-24] MEDS: amLODIPine BESYLATE 5 MG TABLET (FP) PO SCH (09:55)
[2021-10-24] MEDS: METHOCARBAMOL 500 MG TABLET PO PRN ×2 (09:56→21:33)
[2021-10-24] MEDS: MELATONIN 5 MG TABLETS PO SCH (21:32)
[2021-10-24] MEDS: MIRTAZAPINE 15 MG TABLET (FP) PO SCH (21:33)
[2021-10-24] MEDS: THIAMINE HCL 100 MG TABLET (FP) PO SCH (21:33)
[2021-10-24] MEDS: LIDOCAINE PATCH REMOVAL MC SCH (21:56)
[2021-10-25] MEDS: TAMSULOSIN HCL 0.4 MG CAP PO SCH (07:30)
[2021-10-25] MEDS: PRENATAL VITAMINS W/ FOLIC ACID TABLET (FP) PO SCH (10:13)
[2021-10-25] MEDS: amLODIPine BESYLATE 5 MG TABLET (FP) PO SCH (10:13)
[2021-10-25] MEDS: LIDOCAINE 5% TOPICAL PATCH TP SCH (10:13)
[2021-10-25] MEDS: NICOTINE 7 MG/24 HOURS TOPICAL PATCH TD SCH (10:14)
[2021-10-25] MEDS: METHYL SALICYLATE/MENTHOL OINT 30 GM TUBE TP SCH ×2 (12:17→21:22)
[2021-10-25] MEDS: TOLNAFTATE 1% CREAM 15 GM TUBE TP SCH ×2 (12:18→21:22)
[2021-10-25] MEDS: MIRTAZAPINE 15 MG TABLET (FP) PO SCH (21:22)
[2021-10-25] MEDS: LIDOCAINE PATCH REMOVAL MC SCH (21:22)
[2021-10-25] MEDS: MELATONIN 5 MG TABLETS PO SCH (21:22)
[2021-10-25] MEDS: THIAMINE HCL 100 MG TABLET (FP) PO SCH (21:22)
[2021-10-25] MEDS: hydrOXYzine PAMOATE 25 MG CAPSULE (FP) PO PRN (21:23)
[2021-10-26] MEDS: PRENATAL VITAMINS W/ FOLIC ACID TABLET (FP) PO SCH (10:35)
[2021-10-26] MEDS: TAMSULOSIN HCL 0.4 MG CAP PO SCH (10:35)
[2021-10-26] MEDS: amLODIPine BESYLATE 5 MG TABLET (FP) PO SCH (10:35)
[2021-10-26] MEDS: TOLNAFTATE 1% CREAM 15 GM TUBE TP SCH ×2 (10:36→21:30)
[2021-10-26] MEDS: NICOTINE 7 MG/24 HOURS TOPICAL PATCH TD SCH (10:36)
[2021-10-26] MEDS: METHYL SALICYLATE/MENTHOL OINT 30 GM TUBE TP SCH ×2 (10:36→21:28)
[2021-10-26] MEDS: LIDOCAINE 5% TOPICAL PATCH TP SCH (10:36)
[2021-10-26] MEDS: MELATONIN 5 MG TABLETS PO SCH (21:29)
[2021-10-26] MEDS: LIDOCAINE PATCH REMOVAL MC SCH (21:29)
[2021-10-26] MEDS: MIRTAZAPINE 15 MG TABLET (FP) PO SCH (21:30)
[2021-10-26] MEDS: THIAMINE HCL 100 MG TABLET (FP) PO SCH (21:30)
[2021-10-26] MEDS: METHOCARBAMOL 500 MG TABLET PO PRN (21:30)
[2021-10-27] MEDS: TAMSULOSIN HCL 0.4 MG CAP PO SCH (07:50)
[2021-10-27] MEDS: LIDOCAINE 5% TOPICAL PATCH TP SCH (10:16)
[2021-10-27] MEDS: PRENATAL VITAMINS W/ FOLIC ACID TABLET (FP) PO SCH (10:16)
[2021-10-27] MEDS: METHYL SALICYLATE/MENTHOL OINT 30 GM TUBE TP SCH ×2 (10:16→21:26)
[2021-10-27] MEDS: NICOTINE 7 MG/24 HOURS TOPICAL PATCH TD SCH (10:16)
[2021-10-27] MEDS: amLODIPine BESYLATE 5 MG TABLET (FP) PO SCH (10:17)
[2021-10-27] MEDS: TOLNAFTATE 1% CREAM 15 GM TUBE TP SCH ×2 (10:17→21:27)
[2021-10-27] MEDS: LIDOCAINE PATCH REMOVAL MC SCH (21:26)
[2021-10-27] MEDS: MELATONIN 5 MG TABLETS PO SCH (21:26)
[2021-10-27] MEDS: MIRTAZAPINE 15 MG TABLET (FP) PO SCH (21:27)
[2021-10-27] MEDS: THIAMINE HCL 100 MG TABLET (FP) PO SCH (21:27)
[2021-10-28] MEDS: TAMSULOSIN HCL 0.4 MG CAP PO SCH (07:51)
[2021-10-28] MEDS: METHYL SALICYLATE/MENTHOL OINT 30 GM TUBE TP SCH ×2 (10:03→21:34)
[2021-10-28] MEDS: LIDOCAINE 5% TOPICAL PATCH TP SCH (10:03)
[2021-10-28] MEDS: PRENATAL VITAMINS W/ FOLIC ACID TABLET (FP) PO SCH (10:03)
[2021-10-28] MEDS: METHOCARBAMOL 500 MG TABLET PO PRN (10:04)
[2021-10-28] MEDS: TOLNAFTATE 1% CREAM 15 GM TUBE TP SCH ×2 (10:04→21:34)
[2021-10-28] MEDS: amLODIPine BESYLATE 5 MG TABLET (FP) PO SCH (10:04)
[2021-10-28] MEDS: NICOTINE 7 MG/24 HOURS TOPICAL PATCH TD SCH (10:04)
[2021-10-28] MEDS: LIDOCAINE PATCH REMOVAL MC SCH (21:33)
[2021-10-28] MEDS: MIRTAZAPINE 15 MG TABLET (FP) PO SCH (21:33)
[2021-10-28] MEDS: MELATONIN 5 MG TABLETS PO SCH (21:33)
[2021-10-28] MEDS: THIAMINE HCL 100 MG TABLET (FP) PO SCH (21:33)
[2021-10-29] MEDS: TAMSULOSIN HCL 0.4 MG CAP PO SCH (10:03)
[2021-10-29] MEDS: amLODIPine BESYLATE 5 MG TABLET (FP) PO SCH (10:03)
[2021-10-29] MEDS: METHYL SALICYLATE/MENTHOL OINT 30 GM TUBE TP SCH ×2 (10:03→21:23)
[2021-10-29] MEDS: PRENATAL VITAMINS W/ FOLIC ACID TABLET (FP) PO SCH (10:03)
[2021-10-29] MEDS: METHOCARBAMOL 500 MG TABLET PO PRN ×2 (10:05→21:25)
[2021-10-29] MEDS: LIDOCAINE 5% TOPICAL PATCH TP SCH (10:06)
[2021-10-29] MEDS: NICOTINE 7 MG/24 HOURS TOPICAL PATCH TD SCH (10:06)
[2021-10-29] MEDS: TOLNAFTATE 1% CREAM 15 GM TUBE TP SCH ×2 (10:06→21:23)
[2021-10-29] MEDS: MELATONIN 5 MG TABLETS PO SCH (21:23)
[2021-10-29] MEDS: LIDOCAINE PATCH REMOVAL MC SCH (21:23)
[2021-10-29] MEDS: MIRTAZAPINE 15 MG TABLET (FP) PO SCH (21:23)
[2021-10-29] MEDS: THIAMINE HCL 100 MG TABLET (FP) PO SCH (21:23)
[2021-10-30] MEDS: LIDOCAINE 5% TOPICAL PATCH TP SCH (09:55)
[2021-10-30] MEDS: PRENATAL VITAMINS W/ FOLIC ACID TABLET (FP) PO SCH (09:55)
[2021-10-30] MEDS: NICOTINE 7 MG/24 HOURS TOPICAL PATCH TD SCH (09:56)
[2021-10-30] MEDS: amLODIPine BESYLATE 5 MG TABLET (FP) PO SCH (09:56)
[2021-10-30] MEDS: TAMSULOSIN HCL 0.4 MG CAP PO SCH (09:56)
[2021-10-30] MEDS: METHYL SALICYLATE/MENTHOL OINT 30 GM TUBE TP SCH ×2 (09:56→21:48)
[2021-10-30] MEDS: TOLNAFTATE 1% CREAM 15 GM TUBE TP SCH ×2 (09:57→21:49)
[2021-10-30] MEDS: METHOCARBAMOL 500 MG TABLET PO PRN ×2 (09:57→21:50)
[2021-10-30] MEDS: LIDOCAINE PATCH REMOVAL MC SCH (21:49)
[2021-10-30] MEDS: MELATONIN 5 MG TABLETS PO SCH (21:49)
[2021-10-30] MEDS: MIRTAZAPINE 15 MG TABLET (FP) PO SCH (21:49)
[2021-10-30] MEDS: THIAMINE HCL 100 MG TABLET (FP) PO SCH (21:49)
[2021-10-31] MEDS: NICOTINE 7 MG/24 HOURS TOPICAL PATCH TD SCH (09:52)
[2021-10-31] MEDS: LIDOCAINE 5% TOPICAL PATCH TP SCH (09:52)
[2021-10-31] MEDS: PRENATAL VITAMINS W/ FOLIC ACID TABLET (FP) PO SCH (09:52)
[2021-10-31] MEDS: TAMSULOSIN HCL 0.4 MG CAP PO SCH (09:53)
[2021-10-31] MEDS: METHOCARBAMOL 500 MG TABLET PO PRN ×2 (09:53→21:44)
[2021-10-31] MEDS: amLODIPine BESYLATE 5 MG TABLET (FP) PO SCH (09:53)
[2021-10-31] MEDS: METHYL SALICYLATE/MENTHOL OINT 30 GM TUBE TP SCH ×2 (09:54→21:43)
[2021-10-31] MEDS: TOLNAFTATE 1% CREAM 15 GM TUBE TP SCH ×2 (09:54→21:44)
[2021-10-31] MEDS: LIDOCAINE PATCH REMOVAL MC SCH (21:43)
[2021-10-31] MEDS: MIRTAZAPINE 15 MG TABLET (FP) PO SCH (21:44)
[2021-10-31] MEDS: THIAMINE HCL 100 MG TABLET (FP) PO SCH (21:44)
[2021-10-31] MEDS: MELATONIN 5 MG TABLETS PO SCH (21:44)
[2021-11-01] MEDS: PRENATAL VITAMINS W/ FOLIC ACID TABLET (FP) PO SCH (10:31)
[2021-11-01] MEDS: LIDOCAINE 5% TOPICAL PATCH TP SCH (10:31)
[2021-11-01] MEDS: amLODIPine BESYLATE 5 MG TABLET (FP) PO SCH (10:31)
[2021-11-01] MEDS: METHYL SALICYLATE/MENTHOL OINT 30 GM TUBE TP SCH ×2 (10:31→21:45)
[2021-11-01] MEDS: NICOTINE 7 MG/24 HOURS TOPICAL PATCH TD SCH (10:31)
[2021-11-01] MEDS: TAMSULOSIN HCL 0.4 MG CAP PO SCH (10:31)
[2021-11-01] MEDS: METHOCARBAMOL 500 MG TABLET PO PRN ×2 (10:31→21:46)
[2021-11-01] MEDS: TOLNAFTATE 1% CREAM 15 GM TUBE TP SCH ×2 (10:38→21:46)
[2021-11-01] MEDS: LIDOCAINE PATCH REMOVAL MC SCH (21:45)
[2021-11-01] MEDS: MIRTAZAPINE 15 MG TABLET (FP) PO SCH (21:46)
[2021-11-01] MEDS: THIAMINE HCL 100 MG TABLET (FP) PO SCH (21:46)
[2021-11-01] MEDS: MELATONIN 5 MG TABLETS PO SCH (21:46)
[2021-11-02] MEDS: TAMSULOSIN HCL 0.4 MG CAP PO SCH (07:33)
[2021-11-02] MEDS: PRENATAL VITAMINS W/ FOLIC ACID TABLET (FP) PO SCH (10:01)
[2021-11-02] MEDS: LIDOCAINE 5% TOPICAL PATCH TP SCH (10:01)
[2021-11-02] MEDS: METHOCARBAMOL 500 MG TABLET PO PRN ×2 (10:02→21:12)
[2021-11-02] MEDS: amLODIPine BESYLATE 5 MG TABLET (FP) PO SCH (10:02)
[2021-11-02] MEDS: NICOTINE 7 MG/24 HOURS TOPICAL PATCH TD SCH (10:02)
[2021-11-02] MEDS: TOLNAFTATE 1% CREAM 15 GM TUBE TP SCH ×2 (10:03→21:11)
[2021-11-02] MEDS: METHYL SALICYLATE/MENTHOL OINT 30 GM TUBE TP SCH ×2 (10:03→21:11)
[2021-11-02] MEDS: THIAMINE HCL 100 MG TABLET (FP) PO SCH (21:11)
[2021-11-02] MEDS: MELATONIN 5 MG TABLETS PO SCH (21:11)
[2021-11-02] MEDS: LIDOCAINE PATCH REMOVAL MC SCH (21:11)
[2021-11-02] MEDS: MIRTAZAPINE 15 MG TABLET (FP) PO SCH (21:12)
[2021-11-03 07:07] VITALS: TEMP 97.1
[2021-11-03] MEDS: METHOCARBAMOL 500 MG TABLET PO PRN ×2 (10:19→21:25)
[2021-11-03] MEDS: amLODIPine BESYLATE 5 MG TABLET (FP) PO SCH (10:19)
[2021-11-03] MEDS: PRENATAL VITAMINS W/ FOLIC ACID TABLET (FP) PO SCH (10:19)
[2021-11-03] MEDS: TAMSULOSIN HCL 0.4 MG CAP PO SCH (10:19)
[2021-11-03] MEDS: LIDOCAINE 5% TOPICAL PATCH TP SCH (10:20)
[2021-11-03] MEDS: METHYL SALICYLATE/MENTHOL OINT 30 GM TUBE TP SCH ×2 (10:20→21:26)
[2021-11-03] MEDS: TOLNAFTATE 1% CREAM 15 GM TUBE TP SCH ×2 (10:20→22:21)
[2021-11-03] MEDS: NICOTINE 7 MG/24 HOURS TOPICAL PATCH TD SCH (10:20)
[2021-11-03] MEDS: MIRTAZAPINE 15 MG TABLET (FP) PO SCH (21:25)
[2021-11-03] MEDS: THIAMINE HCL 100 MG TABLET (FP) PO SCH (21:25)
[2021-11-03] MEDS: MELATONIN 5 MG TABLETS PO SCH (21:25)
[2021-11-03] MEDS: LIDOCAINE PATCH REMOVAL MC SCH (21:26)
[2021-11-03] MEDS: IBUPROFEN 400 MG TABLET (FP) PO PRN (21:26)
[2021-11-04] MEDS: amLODIPine BESYLATE 5 MG TABLET (FP) PO SCH (10:01)
[2021-11-04] MEDS: PRENATAL VITAMINS W/ FOLIC ACID TABLET (FP) PO SCH (10:01)
[2021-11-04] MEDS: LIDOCAINE 5% TOPICAL PATCH TP SCH (10:02)
[2021-11-04] MEDS: NICOTINE 7 MG/24 HOURS TOPICAL PATCH TD SCH (10:02)
[2021-11-04] MEDS: METHYL SALICYLATE/MENTHOL OINT 30 GM TUBE TP SCH ×2 (10:03→21:15)
[2021-11-04] MEDS: TOLNAFTATE 1% CREAM 15 GM TUBE TP SCH ×2 (10:04→21:14)
[2021-11-04] MEDS: TAMSULOSIN HCL 0.4 MG CAP PO SCH (10:04)
[2021-11-04 10:12] VITALS: PULSE 62
[2021-11-04] MEDS: THIAMINE HCL 100 MG TABLET (FP) PO SCH (21:13)
[2021-11-04] MEDS: MIRTAZAPINE 15 MG TABLET (FP) PO SCH (21:14)
[2021-11-04] MEDS: MELATONIN 5 MG TABLETS PO SCH (21:14)
[2021-11-04] MEDS: LIDOCAINE PATCH REMOVAL MC SCH (21:15)
[2021-11-05 07:06] VITALS: BP 145/83
[2021-11-05] MEDS: TAMSULOSIN HCL 0.4 MG CAP PO SCH (07:32)
[2021-11-05] MEDS: PRENATAL VITAMINS W/ FOLIC ACID TABLET (FP) PO SCH (09:43)
[2021-11-05] MEDS: amLODIPine BESYLATE 5 MG TABLET (FP) PO SCH (09:43)
[2021-11-05] MEDS: NICOTINE 7 MG/24 HOURS TOPICAL PATCH TD SCH (09:43)
[2021-11-05] MEDS: LIDOCAINE 5% TOPICAL PATCH TP SCH (09:44)
[2021-11-05] MEDS: TOLNAFTATE 1% CREAM 15 GM TUBE TP SCH (09:44)
[2021-11-05] MEDS: METHYL SALICYLATE/MENTHOL OINT 30 GM TUBE TP SCH (09:44)
== END 2021-11-05 10:00 | disposition home or self-care (01) | DRG 772 ==
LOC: YASAS 12:36 → Y5N 12:38
PROVIDERS: ADMIT Allergy & Immunology; ATTEND Allergy & Immunology
PROC: HZ42ZZZ Group Counseling for Substance Abuse Treatment, Cognitive-Behavioral (ICD-10-PCS; principal; 2021-10-17)
DX: F10.20 Alcohol dependence, uncomplicated (principal); F14.20 Cocaine dependence, uncomplicated; F17.210 Nicotine dependence, cigarettes, uncomplicated; F31.9 Bipolar disorder, unspecified; I10 Essential (primary) hypertension; J45.909 Unspecified asthma, uncomplicated; M54.40 Lumbago with sciatica, unspecified side; G89.29 Other chronic pain; M62.830 Muscle spasm of back; B35.3 Tinea pedis; Z99.89 Dependence on other enabling machines and devices; Z91.013 Allergy to seafood
CPT/HCPCS: 82962; C9803-CS; U0003; U0005

== ENCOUNTER 2024-06-18 13:41 | Inpatient (IN) | payer OTHER ==
[2024-06-18 14:17] VITALS: BMI 28.6
[2024-06-18] MEDS ORDERED: DICYCLOMINE HCL 10 MG CAPSULE PO PRN (15:31)
[2024-06-18] MEDS ORDERED: chlordiazePOXIDE HCL 25 MG CAPSULE PO PRN (15:31)
[2024-06-18] MEDS ORDERED: IBUPROFEN 400 MG TABLET (FP) PO PRN (15:31)
[2024-06-18] MEDS ORDERED: LOPERAMIDE HCL 2 MG CAPSULE PO PRN (15:31)
[2024-06-18] MEDS ORDERED: MAG HYDROX/AL HYDROX/SIMETH 30 ML UNIT-DOSE CUP PO PRN (15:31)
[2024-06-18] MEDS ORDERED: MAGNESIUM HYDROX 2400MG/30ML ORAL SUSPENSION 30 ML CUP PO PRN (15:31)
[2024-06-18] MEDS ORDERED: ONDANSETRON *ODT* 4 MG TABLET SL PRN (15:31)
[2024-06-18] MEDS ORDERED: NALOXONE (NARCAN) HCL 4 MG/0.1 ML SPRAY NS PRN (15:31)
[2024-06-18] MEDS ORDERED: BISMUTH SUBSALICYLATE 524 MG/30 ML PO PRN (15:31)
[2024-06-18] MEDS ORDERED: POLYETHYLENE GLYCOL (HEALTHYLAX) 3350 17 GM PACKET PO PRN (15:31)
[2024-06-18] MEDS ORDERED: ACETAMINOPHEN 325 MG TABLET (FP) PO PRN (15:31)
[2024-06-18] MEDS ORDERED: IBUPROFEN 600 MG TABLET (FP) PO PRN (15:31)
[2024-06-18] MEDS ORDERED: BENZONATATE 200 MG CAPSULE PO PRN (15:31)
[2024-06-18] MEDS: PRENATAL VITAMINS W/ FOLIC ACID TABLET (FP) PO SCH (17:54)
[2024-06-18] MEDS: TOLNAFTATE 1% CREAM 15 GM TUBE TP SCH (22:38)
[2024-06-18] MEDS: guaiFENesin 600 MG TABLET.ER (FP) PO PRN (22:38)
[2024-06-18] MEDS: BENZOCAINE/MENTHOL (CHLORASEPTIC ) LOZENGE MM PRN (22:39)
[2024-06-18] MEDS: MELATONIN 5 MG TABLETS PO SCH (22:39)
[2024-06-18] MEDS: chlordiazePOXIDE HCL 25 MG CAPSULE PO SCH (22:39)
[2024-06-18] MEDS: THIAMINE 100 MG TABLET PO SCH (22:39)
[2024-06-18] MEDS: METHOCARBAMOL 500 MG TABLET PO PRN (22:39)
[2024-06-19] MEDS: ALBUTEROL SO4 HFA INHALER IH SCH (07:35)
[2024-06-19] MEDS: TAMSULOSIN HCL 0.4 MG CAP PO SCH (10:26)
[2024-06-19] MEDS: NALTREXONE HCL 50 MG TABLET PO SCH (10:26)
[2024-06-19 12:57] LABS: HEMATOCRIT 41.8 % (35.4-49); HEMOGLOBIN 14.1 GM/dL (11.7-16.9); MCH 29.4 pg (25.7-33.7); MCHC 33.9 g/dl (32.0-35.9); MEAN CELL VOLUME 86.7 fl (80-96); MEAN PLT VOLUME 7.8 fl (7.5-11.1); PLATELET COUNT 248 10^3/uL (134-434); RBC 4.82 M/mm3 (4.00-5.60); RDW 15.6 % (11.9-15.9); WHITE BLOOD COUNT 4.2 K/mm3 (4.0-10.0)
[2024-06-19 12:58] LABS: CHLORIDE 107 mmol/L (98-107); POTASSIUM 3.5 mmol/L (3.5-5.1); SODIUM 143 mmol/L (136-145)
[2024-06-19 13:07] LABS: BLOOD UREA NITROGEN 17.1 mg/dL (7-18); GLUCOSE,RANDOM 135 mg/dL (74-106)
[2024-06-19 13:09] LABS: ALBUMIN 3.3 g/dl (3.4-5.0); CALCIUM 9.3 mg/dL (8.5-10.1)
[2024-06-19 13:10] LABS: ANION GAP 7 mmol/L (4-13); CO2 29 mmol/L (21-32)
[2024-06-19 13:13] LABS: CREATININE 1.5 mg/dL (0.55-1.3); SGOT/AST 16 U/L (15-37); SGPT/ALT 15 U/L (13-61)
[2024-06-19 13:14] LABS: BILIRUBIN,TOTAL 0.4 mg/dL (0.2-1); TOT PROT 6.3 g/dl (6.4-8.2)
[2024-06-19 13:15] LABS: ALK PHOS 47 U/L (45-117)
[2024-06-20] MEDS: chlordiazePOXIDE HCL 25 MG CAPSULE PO SCH (05:47)
[2024-06-20] MEDS: hydrOXYzine PAMOATE 25 MG CAPSULE (FP) PO PRN (22:28)
[2024-06-21] MEDS ORDERED: chlordiazePOXIDE HCL 10 MG CAPSULE PO PRN
[2024-06-21] MEDS: chlordiazePOXIDE HCL 10 MG CAPSULE PO SCH (05:40)
[2024-06-21] MEDS: NALTREXONE HCL 50 MG TABLET PO SCH (10:08)
[2024-06-21] MEDS: amLODIPine BESYLATE 5 MG TABLET (FP) PO SCH (16:09)
[2024-06-21] MEDS: ALBUTEROL SO4 2.5/IPRATROPIUM 0.5 INH SOL 3 ML VIAL.NEB. NEB SCH (20:00)
[2024-06-21] MEDS: predniSONE 20 MG TABLET (UD) PO ONE (20:40)
[2024-06-21] MEDS: MIRTAZAPINE 15 MG TABLET (FP) PO SCH (22:26)
[2024-06-22] MEDS: chlordiazePOXIDE HCL 10 MG CAPSULE PO SCH (05:52)
[2024-06-22 09:15] VITALS: RESP 18
[2024-06-22] MEDS: predniSONE 20 MG TABLET (UD) PO SCH (15:13)
[2024-06-22 16:52] VITALS: TEMP 97.7
[2024-06-22] MEDS: ALBUTEROL SO4 HFA INHALER IH PRN (17:14)
[2024-06-22 19:48] VITALS: BP 144/80; PULSE 103
[2024-06-23] MEDS ORDERED: chlordiazePOXIDE HCL 10 MG CAPSULE PO ONE (05:00)
[2024-06-23] MEDS ORDERED: NALOXONE (NYS OPIOID OVERDOSE PROGRAM) 4 MG/0.1 ML SPRAY NS SCH (08:00)
== END 2024-06-22 20:50 | disposition home or self-care (01) | DRG 897 ==
LOC: YASAS 13:41 → Y3N 16:44
PROVIDERS: ADMIT Allergy & Immunology; ATTEND Surgery
PROC: HZ2ZZZZ Detoxification Services for Substance Abuse Treatment (ICD-10-PCS; principal; 2024-06-18)
DX: F10.230 Alcohol dependence with withdrawal, uncomplicated (principal); F14.20 Cocaine dependence, uncomplicated; F17.210 Nicotine dependence, cigarettes, uncomplicated; F31.9 Bipolar disorder, unspecified; F19.24 Other psychoactive substance dependence with psychoactive substance-induced mood disorder; I10 Essential (primary) hypertension; J44.9 Chronic obstructive pulmonary disease, unspecified; K21.9 Gastro-esophageal reflux disease without esophagitis; N40.0 Benign prostatic hyperplasia without lower urinary tract symptoms; R86.8 Other abnormal findings in specimens from male genital organs; Z86.19 Personal history of other infectious and parasitic diseases
CPT/HCPCS: 0241U-QW; 36415; 80053; 80305; 80307; 85027; 86593; 86780; 93005; 93010; 94640